=== PATIENT | male | born 1950 | race African-American/Black ===

== ENCOUNTER 2017-04-09 20:10 | Inpatient (IN) | payer MEDICARE ==
[~2017-04-09] VITALS: Ht 185.4 cm; Wt 101.6 kg
[2017-04-09 20:00] VITALS: BP 122/64
[~2017-04-09 20:10] MED LIST: AMLO10TA80 PO; ASCO-339 PO; JANUMET PO; TICA60TA PO
[2017-04-09] MEDS ORDERED: ONDANSETRON HCL 4MG/2ML VIAL IV PRN (21:15)
[2017-04-09] MEDS ORDERED: ZOLPIDEM TARTRATE 5MG TABLET PO PRN (21:15)
[2017-04-09] MEDS ORDERED: HYDROMORPHONE HCL/PF 2MG/ML CPJ IV PRN (21:15)
[2017-04-09 22:00] VITALS: BP 122/64
[2017-04-09] MEDS: ATORVASTATIN CALCIUM 10MG TABLET PO SCH (22:03)
[2017-04-09] MEDS: ENOXAPARIN 100MG/ML SYR SUBCUT SCH (22:33)
[2017-04-09] MEDS: TICAGRELOR 60 MG TABLET PO SCH (23:29)
[2017-04-10] MEDS: ACETAMINOPHEN WITH CODEINE 300/30MG TABLET PO PRN ×3 (02:08→20:55)
[2017-04-10 08:00] VITALS: BP 112/57
[2017-04-10 08:01] LABS: BASOPHILS % 0.3 % (0.0-2.0); EOSINOPHILS % 1.2 % (0.0-5.0); HEMATOCRIT. 29.2 % (42.0-52.0); HEMOGLOBIN. 9.7 g/dL (14.0-18.0); LYMPHOCYTES % 17.5 % (20.0-50.0); MEAN CORPUSCULAR HEMOGLOBIN 29.6 pg (28.0-32.0); MEAN CORPUSCULAR VOLUME 89.3 fL (80.0-94.0); MEAN PLATELET VOLUME 7.7 fl (7.4-10.4); MONOCYTES % 8.7 % (2.0-8.0); NEUTROPHILS % 72.3 % (40.0-76.0); PLATELET 329 x1000/uL (130-400); RED BLOOD CELL COUNT 3.27 mill/uL (4.7-6.1)
[2017-04-10 08:42] LABS: CARBON DIOXIDE 24 mEq/L (21-32); CHLORIDE 106 mEq/L (98-107); HAPTOGLOBIN 320 mg/dL (30-200); PREALBUMIN 14.5 mg/dL (20.0-40.0)
[2017-04-10] MEDS: AMLODIPINE 10MG TABLET PO SCH (09:00)
[2017-04-10] MEDS: ENOXAPARIN 100MG/ML SYR SUBCUT SCH ×2 (09:22→20:57)
[2017-04-10] MEDS: DOCUSATE SODIUM 250MG CAPSULE PO SCH (09:22)
[2017-04-10] MEDS: ASPIRIN 81MG TABLET PO SCH (09:22)
[2017-04-10] MEDS: LINAGLIPTIN 5MG TABLET PO SCH (09:23)
[2017-04-10] MEDS: METFORMIN HCL 500MG TABLET PO SCH ×2 (09:23→16:59)
[2017-04-10] MEDS: TICAGRELOR 60 MG TABLET PO SCH ×2 (09:25→20:54)
[2017-04-10 12:10] VITALS: BP 122/86
[2017-04-10] MEDS ORDERED: POTASSIUM BICARB/CIT ACID 25 MEQ TABLET.EFF PO ONE (16:00)
[2017-04-10] MEDS ORDERED: DEXTROSE 50% WATER 50ML SYRINGE IV PRN (16:00)
[2017-04-10] MEDS ORDERED: POTASSIUM CHLORIDE 20MEQ TABLET SR PO NR (16:15)
[2017-04-10] MEDS: INSULIN LISPRO 100 UNITS/ML SUBCUT SCH ×2 (17:00→20:57)
[2017-04-10] MEDS: BLOOD SUGAR DIAGNOSTIC STRIP TEST SCH ×2 (17:21→20:58)
[2017-04-10 20:00] VITALS: BP 115/62
[2017-04-10] MEDS: ATORVASTATIN CALCIUM 10MG TABLET PO SCH (20:55)
[2017-04-11] MEDS: BLOOD SUGAR DIAGNOSTIC STRIP TEST SCH ×4 (06:47→21:14)
[2017-04-11] MEDS: INSULIN LISPRO 100 UNITS/ML SUBCUT SCH ×4 (06:47→21:00)
[2017-04-11 07:07] LABS: BASOPHILS % 0.2 % (0.0-2.0); EOSINOPHILS % 1.5 % (0.0-5.0); HEMATOCRIT. 28.6 % (42.0-52.0); HEMOGLOBIN. 9.6 g/dL (14.0-18.0); LYMPHOCYTES % 17.1 % (20.0-50.0); MEAN CORPUSCULAR HEMOGLOBIN 29.9 pg (28.0-32.0); MEAN CORPUSCULAR VOLUME 88.9 fL (80.0-94.0); MEAN PLATELET VOLUME 7.3 fl (7.4-10.4); MONOCYTES % 9.3 % (2.0-8.0); NEUTROPHILS % 71.9 % (40.0-76.0); PLATELET 375 x1000/uL (130-400); RED BLOOD CELL COUNT 3.21 mill/uL (4.7-6.1); RED CELL DISTRIBUTION WIDTH 14.1 % (11.6-14.6)
[2017-04-11 07:55] LABS: CARBON DIOXIDE 21 mEq/L (21-32); CHLORIDE 110 mEq/L (98-107)
[2017-04-11 08:00] VITALS: BP 106/56
[2017-04-11] MEDS: AMLODIPINE 10MG TABLET PO SCH (09:00)
[2017-04-11] MEDS: ENOXAPARIN 100MG/ML SYR SUBCUT SCH ×2 (09:20→21:47)
[2017-04-11] MEDS: DOCUSATE SODIUM 250MG CAPSULE PO SCH (09:21)
[2017-04-11] MEDS: ASPIRIN 81MG TABLET PO SCH (09:21)
[2017-04-11] MEDS: LINAGLIPTIN 5MG TABLET PO SCH (09:21)
[2017-04-11] MEDS: METFORMIN HCL 500MG TABLET PO SCH ×2 (09:21→17:55)
[2017-04-11] MEDS: TICAGRELOR 60 MG TABLET PO SCH ×2 (09:23→21:39)
[2017-04-11] MEDS: MAGNESIUM OXIDE 400MG TABLET PO SCH ×2 (12:08→21:44)
[2017-04-11 16:45] VITALS: BP 140/79
[2017-04-11] MEDS: ACETAMINOPHEN WITH CODEINE 300/30MG TABLET PO PRN (16:49)
[2017-04-11 20:00] VITALS: BP 123/82
[2017-04-11] MEDS: ATORVASTATIN CALCIUM 10MG TABLET PO SCH (21:41)
[2017-04-11] MEDS: ACETAMINOPHEN 325MG TABLET PO PRN (21:44)
[2017-04-12] MEDS: ACETAMINOPHEN 325MG TABLET PO PRN (05:41)
[2017-04-12] MEDS: BLOOD SUGAR DIAGNOSTIC STRIP TEST SCH ×4 (06:49→21:36)
[2017-04-12 08:01] VITALS: BP 125/77
[2017-04-12] MEDS: DOCUSATE SODIUM 250MG CAPSULE PO SCH (08:33)
[2017-04-12] MEDS: AMLODIPINE 10MG TABLET PO SCH (08:34)
[2017-04-12] MEDS: MAGNESIUM OXIDE 400MG TABLET PO SCH ×2 (08:34→21:32)
[2017-04-12] MEDS: LINAGLIPTIN 5MG TABLET PO SCH (08:34)
[2017-04-12] MEDS: ENOXAPARIN 100MG/ML SYR SUBCUT SCH ×2 (08:34→21:34)
[2017-04-12] MEDS: ASPIRIN 81MG TABLET PO SCH (08:34)
[2017-04-12] MEDS: INSULIN LISPRO 100 UNITS/ML SUBCUT SCH ×4 (08:37→21:00)
[2017-04-12] MEDS: TICAGRELOR 60 MG TABLET PO SCH ×2 (08:39→21:31)
[2017-04-12] MEDS: METFORMIN HCL 500MG TABLET PO SCH ×2 (08:39→18:19)
[2017-04-12 13:50] LABS: BASOPHILS % 0.9 % (0.0-2.0); EOSINOPHILS % 1.4 % (0.0-5.0); HEMATOCRIT. 32.8 % (42.0-52.0); LYMPHOCYTES % 14.4 % (20.0-50.0); MEAN CORPUSCULAR HEMOGLOBIN 30.1 pg (28.0-32.0); MEAN CORPUSCULAR VOLUME 89.6 fL (80.0-94.0); MEAN PLATELET VOLUME 7.6 fl (7.4-10.4); MONOCYTES % 7.7 % (2.0-8.0); NEUTROPHILS % 75.6 % (40.0-76.0); PLATELET 475 x1000/uL (130-400); RED BLOOD CELL COUNT 3.66 mill/uL (4.7-6.1); RED CELL DISTRIBUTION WIDTH 14.5 % (11.6-14.6)
[2017-04-12 14:27] LABS: CARBON DIOXIDE 24 mEq/L (21-32); CHLORIDE 106 mEq/L (98-107); HDL CHOLESTEROL 25 mg/dL (40-59); LDL CHOLESTEROL 75 mg/dL (5-100); PHOSPHORUS 2.8 mg/dL (2.5-4.9); TOTAL IRON BINDING CAPACITY 310 ug/dL (250-450)
[2017-04-12 14:41] LABS: FOLIC ACID (FOLATE) SERUM 13.8 ng/mL (>5.38)
[2017-04-12 15:03] LABS: PROSTRATE SPECIFIC AG TOTAL 15.86 ng/mL (0.0-4.0)
[2017-04-12] MEDS: ACETAMINOPHEN WITH CODEINE 300/30MG TABLET PO PRN ×2 (15:55→21:34)
[2017-04-12 20:11] VITALS: BP 137/86
[2017-04-12] MEDS: ATORVASTATIN CALCIUM 10MG TABLET PO SCH (21:31)
[2017-04-13] MEDS: ACETAMINOPHEN WITH CODEINE 300/30MG TABLET PO PRN ×4 (05:52→21:37)
[2017-04-13] MEDS: BLOOD SUGAR DIAGNOSTIC STRIP TEST SCH ×4 (06:30→21:32)
[2017-04-13 07:12] LABS: BASOPHILS % 0.5 % (0.0-2.0); EOSINOPHILS % 1.7 % (0.0-5.0); HEMATOCRIT. 29.1 % (42.0-52.0); HEMOGLOBIN. 9.7 g/dL (14.0-18.0); LYMPHOCYTES % 17.1 % (20.0-50.0); MEAN CORPUSCULAR HEMOGLOBIN 29.8 pg (28.0-32.0); MEAN CORPUSCULAR VOLUME 89.4 fL (80.0-94.0); MEAN PLATELET VOLUME 7.3 fl (7.4-10.4); NEUTROPHILS % 72.7 % (40.0-76.0); PLATELET 458 x1000/uL (130-400); RED BLOOD CELL COUNT 3.25 mill/uL (4.7-6.1); RED CELL DISTRIBUTION WIDTH 14.2 % (11.6-14.6)
[2017-04-13] MEDS: INSULIN LISPRO 100 UNITS/ML SUBCUT SCH ×4 (07:35→21:00)
[2017-04-13 08:00] VITALS: BP 123/74
[2017-04-13] MEDS: ENOXAPARIN 100MG/ML SYR SUBCUT SCH ×2 (08:38→21:32)
[2017-04-13] MEDS: METFORMIN HCL 500MG TABLET PO SCH ×2 (08:38→17:05)
[2017-04-13] MEDS: DOCUSATE SODIUM 250MG CAPSULE PO SCH (08:38)
[2017-04-13] MEDS: ASPIRIN 81MG TABLET PO SCH (08:39)
[2017-04-13] MEDS: AMLODIPINE 10MG TABLET PO SCH (08:39)
[2017-04-13] MEDS: LINAGLIPTIN 5MG TABLET PO SCH (08:39)
[2017-04-13] MEDS: MAGNESIUM OXIDE 400MG TABLET PO SCH ×2 (08:39→21:32)
[2017-04-13] MEDS: TICAGRELOR 60 MG TABLET PO SCH ×2 (08:39→21:31)
[2017-04-13 20:00] VITALS: BP 133/59
[2017-04-13] MEDS: ATORVASTATIN CALCIUM 10MG TABLET PO SCH (21:32)
[2017-04-14] MEDS: ACETAMINOPHEN WITH CODEINE 300/30MG TABLET PO PRN ×3 (03:01→20:53)
[2017-04-14 07:51] VITALS: BP 138/74
[2017-04-14] MEDS: INSULIN LISPRO 100 UNITS/ML SUBCUT SCH ×4 (09:00→20:54)
[2017-04-14] MEDS: DOCUSATE SODIUM 250MG CAPSULE PO SCH (09:02)
[2017-04-14] MEDS: MAGNESIUM OXIDE 400MG TABLET PO SCH ×2 (09:02→20:51)
[2017-04-14] MEDS: METFORMIN HCL 500MG TABLET PO SCH ×2 (09:02→16:54)
[2017-04-14] MEDS: ENOXAPARIN 100MG/ML SYR SUBCUT SCH ×2 (09:03→20:57)
[2017-04-14] MEDS: AMLODIPINE 10MG TABLET PO SCH (09:03)
[2017-04-14] MEDS: ASPIRIN 81MG TABLET PO SCH (09:03)
[2017-04-14] MEDS: LINAGLIPTIN 5MG TABLET PO SCH (09:03)
[2017-04-14] MEDS: TICAGRELOR 60 MG TABLET PO SCH ×2 (09:04→20:53)
[2017-04-14] MEDS: BLOOD SUGAR DIAGNOSTIC STRIP TEST SCH ×3 (11:56→20:41)
[2017-04-14 20:00] VITALS: BP 124/72
[2017-04-14] MEDS: ATORVASTATIN CALCIUM 10MG TABLET PO SCH (20:51)
[2017-04-15] MEDS: ACETAMINOPHEN 325MG TABLET PO PRN ×2 (00:55→08:38)
[2017-04-15 06:48] LABS: HEMATOCRIT. 29.5 % (42.0-52.0); HEMOGLOBIN. 9.7 g/dL (14.0-18.0); MEAN CORPUSCULAR HEMOGLOBIN 29.6 pg (28.0-32.0); MEAN CORPUSCULAR VOLUME 89.7 fL (80.0-94.0); MEAN PLATELET VOLUME 7.4 fl (7.4-10.4); PLATELET 516 x1000/uL (130-400); RED BLOOD CELL COUNT 3.29 mill/uL (4.7-6.1); RED CELL DISTRIBUTION WIDTH 14.4 % (11.6-14.6)
[2017-04-15 07:17] LABS: CARBON DIOXIDE 21 mEq/L (21-32); CHLORIDE 107 mEq/L (98-107)
[2017-04-15] MEDS: BLOOD SUGAR DIAGNOSTIC STRIP TEST SCH ×4 (07:20→20:42)
[2017-04-15 08:00] VITALS: BP 131/84
[2017-04-15] MEDS: TICAGRELOR 60 MG TABLET PO SCH ×2 (08:20→20:41)
[2017-04-15] MEDS: DOCUSATE SODIUM 250MG CAPSULE PO SCH (08:20)
[2017-04-15] MEDS: METFORMIN HCL 500MG TABLET PO SCH ×2 (08:20→16:36)
[2017-04-15] MEDS: LINAGLIPTIN 5MG TABLET PO SCH (08:21)
[2017-04-15] MEDS: MAGNESIUM OXIDE 400MG TABLET PO SCH ×2 (08:21→20:41)
[2017-04-15] MEDS: AMLODIPINE 10MG TABLET PO SCH (08:21)
[2017-04-15] MEDS: ASPIRIN 81MG TABLET PO SCH (08:21)
[2017-04-15] MEDS: ENOXAPARIN 100MG/ML SYR SUBCUT SCH ×2 (08:23→20:41)
[2017-04-15] MEDS: INSULIN LISPRO 100 UNITS/ML SUBCUT SCH ×4 (08:28→21:48)
[2017-04-15 12:33] LABS: IMMUNOGLOBULIN A 333 mg/dL (61-437); IMMUNOGLOBULIN G 1347 mg/dL (700-1600); IMMUNOGLOBULIN M 379 mg/dL (20-172)
[2017-04-15] MEDS: ACETAMINOPHEN WITH CODEINE 300/30MG TABLET PO PRN ×3 (12:56→21:45)
[2017-04-15 15:56] LABS: PLATELET ESTIMATE INCREASED
[2017-04-15 20:00] VITALS: BP 115/70
[2017-04-15] MEDS ORDERED: ZOLPIDEM TARTRATE 5MG TABLET PO PRN (20:30)
[2017-04-15] MEDS: ATORVASTATIN CALCIUM 10MG TABLET PO SCH (20:41)
[2017-04-16] MEDS: BLOOD SUGAR DIAGNOSTIC STRIP TEST SCH ×4 (06:25→21:17)
[2017-04-16] MEDS: INSULIN LISPRO 100 UNITS/ML SUBCUT SCH ×4 (06:45→21:00)
[2017-04-16] MEDS: ACETAMINOPHEN 325MG TABLET PO PRN ×2 (07:06→17:47)
[2017-04-16 07:39] VITALS: BP 114/58
[2017-04-16 08:27] LABS: CLARITY URINE CLEAR (CLEAR); COLOR URINE YELLOW (YELLOW); GLUCOSE URINE NEGATIVE (NEGATIVE); KETONES URINE NEGATIVE (NEGATIVE); LEUKOCYTE ESTERASE URINE NEGATIVE (NEGATIVE); NITRITE URINE NEGATIVE (NEGATIVE); OCCULT BLOOD URINE NEGATIVE (NEGATIVE); PROTEIN URINE TRACE (NEGATIVE); SPECIFIC GRAVITY URINE 1.016 (1.005-1.030)
[2017-04-16] MEDS: AMLODIPINE 10MG TABLET PO SCH (08:34)
[2017-04-16] MEDS: METFORMIN HCL 500MG TABLET PO SCH ×2 (08:35→17:47)
[2017-04-16] MEDS: ENOXAPARIN 100MG/ML SYR SUBCUT SCH ×2 (08:35→21:17)
[2017-04-16] MEDS: MAGNESIUM OXIDE 400MG TABLET PO SCH ×2 (08:35→21:16)
[2017-04-16] MEDS: DOCUSATE SODIUM 250MG CAPSULE PO SCH (08:35)
[2017-04-16] MEDS: LINAGLIPTIN 5MG TABLET PO SCH (08:35)
[2017-04-16] MEDS: ASPIRIN 81MG TABLET PO SCH (08:35)
[2017-04-16 09:06] LABS: 25-HYDROXY VITAMIN D3 23 ng/mL (.)
[2017-04-16] MEDS: TICAGRELOR 60 MG TABLET PO SCH ×2 (09:06→21:16)
[2017-04-16] MEDS: ACETAMINOPHEN WITH CODEINE 300/30MG TABLET PO PRN ×3 (09:07→19:42)
[2017-04-16 12:12] LABS: EOSINOPHILS % 0.4 % (0.0-5.0); HEMATOCRIT. 30.3 % (42.0-52.0); HEMOGLOBIN. 10.1 g/dL (14.0-18.0); LYMPHOCYTES % 12.1 % (20.0-50.0); MEAN CORPUSCULAR VOLUME 89.7 fL (80.0-94.0); MEAN PLATELET VOLUME 7.2 fl (7.4-10.4); MONOCYTES % 7.1 % (2.0-8.0); NEUTROPHILS % 79.4 % (40.0-76.0); PLATELET 560 x1000/uL (130-400); RED BLOOD CELL COUNT 3.37 mill/uL (4.7-6.1); RED CELL DISTRIBUTION WIDTH 14.5 % (11.6-14.6)
[2017-04-16 19:58] VITALS: BP 111/65
[2017-04-16] MEDS: ATORVASTATIN CALCIUM 10MG TABLET PO SCH (21:16)
[2017-04-17] MEDS: INSULIN LISPRO 100 UNITS/ML SUBCUT SCH ×2 (05:42→12:30)
[2017-04-17] MEDS: BLOOD SUGAR DIAGNOSTIC STRIP TEST SCH ×2 (05:42→12:21)
[2017-04-17] MEDS: ACETAMINOPHEN WITH CODEINE 300/30MG TABLET PO PRN ×2 (05:59→12:27)
[2017-04-17 06:32] LABS: BASOPHILS % 0.6 % (0.0-2.0); EOSINOPHILS % 0.5 % (0.0-5.0); HEMATOCRIT. 28.2 % (42.0-52.0); HEMOGLOBIN. 9.4 g/dL (14.0-18.0); LYMPHOCYTES % 13.7 % (20.0-50.0); MEAN CORPUSCULAR HEMOGLOBIN 29.8 pg (28.0-32.0); MEAN CORPUSCULAR VOLUME 89.3 fL (80.0-94.0); MEAN PLATELET VOLUME 7.3 fl (7.4-10.4); MONOCYTES % 7.7 % (2.0-8.0); NEUTROPHILS % 77.5 % (40.0-76.0); PLATELET 498 x1000/uL (130-400); RED BLOOD CELL COUNT 3.16 mill/uL (4.7-6.1); RED CELL DISTRIBUTION WIDTH 14.7 % (11.6-14.6)
[2017-04-17 07:05] LABS: CHLORIDE 104 mEq/L (98-107)
[2017-04-17 07:10] LABS: CARBON DIOXIDE 19 mEq/L (21-32)
[2017-04-17 08:00] VITALS: BP 122/74
[2017-04-17] MEDS: MAGNESIUM OXIDE 400MG TABLET PO SCH (08:34)
[2017-04-17] MEDS: METFORMIN HCL 500MG TABLET PO SCH (08:34)
[2017-04-17] MEDS: DOCUSATE SODIUM 250MG CAPSULE PO SCH (08:35)
[2017-04-17] MEDS: LINAGLIPTIN 5MG TABLET PO SCH (08:36)
[2017-04-17] MEDS: AMLODIPINE 10MG TABLET PO SCH (08:36)
[2017-04-17] MEDS: ASPIRIN 81MG TABLET PO SCH (08:36)
[2017-04-17] MEDS: TICAGRELOR 60 MG TABLET PO SCH (08:37)
[2017-04-17] MEDS: ENOXAPARIN 100MG/ML SYR SUBCUT SCH (08:38)
[2017-04-17] MEDS ORDERED: LEVOFLOXACIN 500MG TABLET PO NR (13:15)
[2017-04-17] MEDS: ACETAMINOPHEN 325MG TABLET PO PRN (15:01)
[2017-04-17 15:04] VITALS: BP 106/66
== END 2017-04-17 15:30 | disposition home health service (06) | DRG 315 ==
PROVIDERS: ADMIT Physical Medicine & Rehabilitation Spinal Cord Injury Medicine; ATTEND Internal Medicine Geriatric Medicine
DX: T82.868A Thrombosis due to vascular prosthetic devices, implants and grafts, initial encounter (principal); I82.811 Embolism and thrombosis of superficial veins of right lower extremity; E11.42 Type 2 diabetes mellitus with diabetic polyneuropathy; E11.51 Type 2 diabetes mellitus with diabetic peripheral angiopathy without gangrene; J98.11 Atelectasis; E87.6 Hypokalemia; G98.8 Other disorders of nervous system; R53.81 Other malaise; E11.621 Type 2 diabetes mellitus with foot ulcer; L97.519 Non-pressure chronic ulcer of other part of right foot with unspecified severity; I10 Essential (primary) hypertension; I73.9 Peripheral vascular disease, unspecified; E78.5 Hyperlipidemia, unspecified; I25.10 Atherosclerotic heart disease of native coronary artery without angina pectoris; E66.01 Morbid (severe) obesity due to excess calories; R26.9 Unspecified abnormalities of gait and mobility; D50.9 Iron deficiency anemia, unspecified; F06.31 Mood disorder due to known physiological condition with depressive features; Z95.5 Presence of coronary angioplasty implant and graft; Z87.891 Personal history of nicotine dependence; Z89.411 Acquired absence of right great toe; Z68.29 Body mass index [BMI] 29.0-29.9, adult; Z88.8 Allergy status to other drugs, medicaments and biological substances; Z79.899 Other long term (current) drug therapy; Z79.82 Long term (current) use of aspirin; Y83.2 Surgical operation with anastomosis, bypass or graft as the cause of abnormal reaction of the patient, or of later complication, without mention of misadventure at the time of the procedure; Y92.89 Other specified places as the place of occurrence of the external cause
CPT/HCPCS: 36415; 71010; 71020; 80048; 80053; 80061; 81001; 82306; 82607; 82728; 82746; 82784; 82962; 83010; 83036; 83540; 83550; 83615; 83735; 84100; 84134; 84153; 84443; 84630; 85025; 86334; 87040; 87086; 93970; 97110; 97112; 97116; 97163; 97167; 97530; 97535; J1170; J1650; J1815

== ENCOUNTER 2017-09-15 13:18 | Emergency (ER) | payer MEDICARE ==
[~2017-09-15] VITALS: Ht 185.4 cm; Wt 100.0 kg
[~2017-09-15 13:18] MED LIST changes: -ASCO-339 PO
[2017-09-15] MEDS ORDERED: KETOROLAC 60MG/2ML VIAL IM ONE (15:15)
[2017-09-15 15:18] VITALS: BP 121/69
[2017-09-15 15:25] LABS: CLARITY URINE CLEAR (CLEAR); COLOR URINE YELLOW (YELLOW); KETONES URINE NEGATIVE (NEGATIVE); LEUKOCYTE ESTERASE URINE NEGATIVE (NEGATIVE); NITRITE URINE NEGATIVE (NEGATIVE); OCCULT BLOOD URINE 2+ (NEGATIVE); PH URINE 5.5 (4.5-8.0); PROTEIN URINE 2+ (NEGATIVE); SPECIFIC GRAVITY URINE 1.016 (1.005-1.030); UROBILINOGEN URINE 0.2 E.U./dL (0.2-1.0)
[2017-09-15 15:28] LABS: BASOPHILS % 0.3 % (0.0-2.0); EOSINOPHILS % 0.2 % (0.0-5.0); HEMATOCRIT. 36.5 % (42.0-52.0); HEMOGLOBIN. 11.8 g/dL (14.0-18.0); LYMPHOCYTES % 12.6 % (20.0-50.0); MEAN CORPUSCULAR HEMOGLOBIN 29.8 pg (28.0-32.0); MEAN PLATELET VOLUME 7.7 fl (7.4-10.4); MONOCYTES % 7.7 % (2.0-8.0); NEUTROPHILS % 79.2 % (40.0-76.0); PLATELET 447 x1000/uL (130-400); RED BLOOD CELL COUNT 3.97 mill/uL (4.7-6.1); RED CELL DISTRIBUTION WIDTH 13.9 % (11.6-14.6)
[2017-09-15 15:32] LABS: CHLORIDE 109 mEq/L (98-107)
== END 2017-09-15 18:01 | disposition home or self-care (01) ==
LOC: ER 14:01
DX: N20.0 Calculus of kidney (principal); M54.5 Low back pain; R11.2 Nausea with vomiting, unspecified; E11.9 Type 2 diabetes mellitus without complications; I10 Essential (primary) hypertension; I25.2 Old myocardial infarction; Z87.440 Personal history of urinary (tract) infections; Z88.8 Allergy status to other drugs, medicaments and biological substances; Z86.73 Personal history of transient ischemic attack (TIA), and cerebral infarction without residual deficits
CPT/HCPCS: 36415; 74176; 80053; 81001; 83690; 85025; 96372; 99285; J1885

== ENCOUNTER 2019-08-25 12:38 | Inpatient (IN) | payer MEDICARE, MEDICAID ==
[~2019-08-25] VITALS: Ht 185.4 cm; Wt 105.2 kg
[2019-08-25] MEDS ORDERED: ONDANSETRON HCL 4MG/2ML INJ IV STA ×2 (15:27→18:11)
[2019-08-25] MEDS ORDERED: SODIUM CHLORIDE 0.9% 1,000 ML IV ONE (15:27)
[2019-08-25] MEDS ORDERED: MORPHINE SULFATE 4 MG/ML CPJ (NOT FOR IM USE) IV STA ×2 (15:27→18:11)
[2019-08-25 16:06] LABS: BASOPHILS % 0.7 % (0.0-2.0); EOSINOPHILS % 0.1 % (0.0-5.0); HEMATOCRIT. 37.6 % (42.0-52.0); HEMOGLOBIN. 12.2 g/dL (14.0-18.0); LYMPHOCYTES % 7.5 % (20.0-50.0); MEAN CORPUSCULAR VOLUME 89.5 fL (80.0-94.0); MEAN PLATELET VOLUME 8.3 fl (7.4-10.4); MONOCYTES % 7.8 % (2.0-8.0); NEUTROPHILS % 83.9 % (40.0-76.0); PLATELET 421 x1000/uL (130-400); RED CELL DISTRIBUTION WIDTH 15.8 % (11.6-14.6)
[2019-08-25] MEDS ORDERED: HYDRALAZINE 20MG/ML VIAL IV ONE ×2 (16:15→17:45)
[2019-08-25 16:29] LABS: CHLORIDE 109 mEq/L (98-107)
[2019-08-25 16:45] LABS: CLARITY URINE CLEAR (CLEAR); COLOR URINE YELLOW (YELLOW); KETONES URINE NEGATIVE (NEGATIVE); LEUKOCYTE ESTERASE URINE NEGATIVE (NEGATIVE); NITRITE URINE NEGATIVE (NEGATIVE); OCCULT BLOOD URINE 2+ (NEGATIVE); PH URINE 5.5 (4.5-8.0); PROTEIN URINE 2+ (NEGATIVE); SPECIFIC GRAVITY URINE 1.019 (1.005-1.030)
[2019-08-25] MEDS ORDERED: PIPERACILLIN/TAZ 3.375G PREMIX 50 ML IV ONE (17:45)
[2019-08-25] MEDS ORDERED: HYDRALAZINE 20MG/ML VIAL IV PRN (20:45)
[2019-08-25] MEDS ORDERED: PIPERACILLIN/TAZ 3.375G PREMIX 50 ML IV SCH (20:45)
[2019-08-25] MEDS ORDERED: DIPHENHYDRAMINE 50MG/ML VIAL IV PRN (20:45)
[2019-08-25] MEDS ORDERED: DEXTROSE 50% WATER 50ML SYRINGE IV PRN (20:45)
[2019-08-25] MEDS ORDERED: ONDANSETRON HCL 4MG/2ML INJ IV PRN (20:45)
[2019-08-25] MEDS ORDERED: LORAZEPAM 2MG/ML CPJ IV PRN (20:45)
[2019-08-25] MEDS ORDERED: FAMOTIDINE 20MG/2ML VIAL IV SCH (22:30)
[2019-08-26] VITALS (7 sets, daily range): BP systolic 121–173; BP diastolic 55–96
[2019-08-26] MEDS: CLONIDINE 0.1MG TABLET PO PRN ×2 (01:21→21:23)
[2019-08-26] MEDS: HYDROMORPHONE HCL/PF 2MG/ML CPJ IV PRN (01:23)
[2019-08-26] MEDS: PIPERACILLIN/TAZOBACTAM 3.375 G in DEXT 5% WATER 100 ML IV SCH ×3 (05:03→21:03)
[2019-08-26] MEDS: SODIUM CHLORIDE 0.9% 1,000 ML IV SCH ×2 (05:03→12:48)
[2019-08-26] MEDS: BLOOD SUGAR DIAGNOSTIC STRIP TEST SCH ×4 (06:25→21:02)
[2019-08-26] MEDS: INSULIN LISPRO 100 UNITS/ML SUBCUT SCH ×4 (06:25→21:00)
[2019-08-26] MEDS ORDERED: PNEUMOCOCCAL 23-VAL P-SAC VAC 0.5 ML IM ONE (08:00)
[2019-08-26 08:24] LABS: BASOPHILS % 0.6 % (0.0-2.0); EOSINOPHILS % 0.4 % (0.0-5.0); HEMATOCRIT. 32.9 % (42.0-52.0); HEMOGLOBIN. 10.7 g/dL (14.0-18.0); LYMPHOCYTES % 10.9 % (20.0-50.0); MEAN CORPUSCULAR HEMOGLOBIN 29.1 pg (28.0-32.0); MEAN PLATELET VOLUME 8.1 fl (7.4-10.4); MONOCYTES % 8.4 % (2.0-8.0); NEUTROPHILS % 79.7 % (40.0-76.0); PLATELET 388 x1000/uL (130-400); RED BLOOD CELL COUNT 3.69 mill/uL (4.7-6.1); RED CELL DISTRIBUTION WIDTH 15.9 % (11.6-14.6)
[2019-08-26 08:27] LABS: CHLORIDE 110 mEq/L (98-107)
[2019-08-26] MEDS: FAMOTIDINE 20MG/2ML VIAL IV SCH ×2 (09:27→20:48)
[2019-08-26] MEDS: ENOXAPARIN 40MG/0.4ML SYR SUBCUT SCH (09:27)
[2019-08-26] MEDS ORDERED: INFLUENZA VIRUS VACCINE(AFLURIA) 0.5ML SYR IM ONE (10:00)
[2019-08-26] MEDS ORDERED: MAGNESIUM 2 G PREMIX 50 ML IV NR (14:30)
[2019-08-26] MEDS: ACETAMINOPHEN 325MG TABLET PO PRN (21:23)
[2019-08-27] VITALS: BP 116/69
[2019-08-27 04:00] VITALS: BP 136/80
[2019-08-27] MEDS: SODIUM CHLORIDE 0.9% 1,000 ML IV SCH ×3 (04:43→18:07)
[2019-08-27] MEDS: HYDROMORPHONE HCL/PF 2MG/ML CPJ IV PRN (05:48)
[2019-08-27] MEDS: PIPERACILLIN/TAZOBACTAM 3.375 G in DEXT 5% WATER 100 ML IV SCH ×3 (05:53→21:23)
[2019-08-27] MEDS: BLOOD SUGAR DIAGNOSTIC STRIP TEST SCH ×4 (06:07→21:18)
[2019-08-27] MEDS: INSULIN LISPRO 100 UNITS/ML SUBCUT SCH ×4 (06:08→21:00)
[2019-08-27 07:06] LABS: CHLORIDE 110 mEq/L (98-107)
[2019-08-27 07:16] LABS: AMYLASE 178 IU/L (25-115)
[2019-08-27 07:49] LABS: BASOPHILS % 0.6 % (0.0-2.0); EOSINOPHILS % 1.6 % (0.0-5.0); HEMATOCRIT. 31.1 % (42.0-52.0); HEMOGLOBIN. 10.3 g/dL (14.0-18.0); LYMPHOCYTES % 7.6 % (20.0-50.0); MEAN CORPUSCULAR HEMOGLOBIN 29.1 pg (28.0-32.0); MEAN CORPUSCULAR VOLUME 87.9 fL (80.0-94.0); MEAN PLATELET VOLUME 8.3 fl (7.4-10.4); MONOCYTES % 4.7 % (2.0-8.0); NEUTROPHILS % 85.5 % (40.0-76.0); PLATELET 325 x1000/uL (130-400); RED BLOOD CELL COUNT 3.54 mill/uL (4.7-6.1); RED CELL DISTRIBUTION WIDTH 15.8 % (11.6-14.6)
[2019-08-27 08:00] VITALS: BP 144/77
[2019-08-27 08:20] LABS: HEPATITIS B SURFACE ANTIGEN NEGATIVE
[2019-08-27] MEDS: FAMOTIDINE 20MG/2ML VIAL IV SCH ×2 (08:40→21:18)
[2019-08-27] MEDS: ENOXAPARIN 40MG/0.4ML SYR SUBCUT SCH (08:41)
[2019-08-27 08:49] LABS: HEPATITIS A AB IGM NEGATIVE (NEGATIVE)
[2019-08-27 20:00] VITALS: BP 138/72
[2019-08-28] VITALS: BP 124/64
[2019-08-28 04:00] VITALS: BP 140/76
[2019-08-28] MEDS: SODIUM CHLORIDE 0.9% 1,000 ML IV SCH ×3 (05:31→23:24)
[2019-08-28] MEDS: PIPERACILLIN/TAZOBACTAM 3.375 G in DEXT 5% WATER 100 ML IV SCH ×3 (05:31→21:06)
[2019-08-28] MEDS: BLOOD SUGAR DIAGNOSTIC STRIP TEST SCH ×4 (05:52→21:03)
[2019-08-28] MEDS: INSULIN LISPRO 100 UNITS/ML SUBCUT SCH ×4 (06:32→21:11)
[2019-08-28 08:00] VITALS: BP 150/75
[2019-08-28] MEDS: ENOXAPARIN 40MG/0.4ML SYR SUBCUT SCH (08:38)
[2019-08-28] MEDS: FAMOTIDINE 20MG/2ML VIAL IV SCH ×2 (08:38→21:06)
[2019-08-28 12:00] VITALS: BP 151/76
[2019-08-28 16:00] VITALS: BP 130/69
[2019-08-28 20:00] VITALS: BP 141/60
[2019-08-29] MEDS: PIPERACILLIN/TAZOBACTAM 3.375 G in DEXT 5% WATER 100 ML IV SCH ×2 (05:04→14:41)
[2019-08-29] MEDS: BLOOD SUGAR DIAGNOSTIC STRIP TEST SCH ×3 (05:23→17:20)
[2019-08-29] MEDS: INSULIN LISPRO 100 UNITS/ML SUBCUT SCH ×3 (06:07→17:15)
[2019-08-29 08:00] VITALS: BP 179/100
[2019-08-29] MEDS: ENOXAPARIN 40MG/0.4ML SYR SUBCUT SCH (08:00)
[2019-08-29] MEDS: ACETAMINOPHEN 325MG TABLET PO PRN (08:01)
[2019-08-29] MEDS: FAMOTIDINE 20MG/2ML VIAL IV SCH (08:01)
[2019-08-29] MEDS: CLONIDINE 0.1MG TABLET PO PRN (08:01)
[2019-08-29] MEDS ORDERED: MAGNESIUM 2 G PREMIX 50 ML IV ONE (11:00)
[2019-08-29] MEDS: SODIUM CHLORIDE 0.9% 1,000 ML IV SCH (11:00)
[2019-08-29 12:00] VITALS: BP 127/70
[2019-08-29 15:14] VITALS: BP 127/70
[2019-08-29 16:00] VITALS: BP 143/64
== END 2019-08-29 18:15 | disposition home or self-care (01) | DRG 444 ==
LOC: ER 12:38 → 5WST 17:58 → EDBEDREQ 18:03 → ENRESERV 23:32
PROVIDERS: ADMIT Internal Medicine; ATTEND Internal Medicine
DX: K80.62 Calculus of gallbladder and bile duct with acute cholecystitis without obstruction (principal); K85.10 Biliary acute pancreatitis without necrosis or infection; E88.09 Other disorders of plasma-protein metabolism, not elsewhere classified; E11.51 Type 2 diabetes mellitus with diabetic peripheral angiopathy without gangrene; I10 Essential (primary) hypertension; I25.10 Atherosclerotic heart disease of native coronary artery without angina pectoris; N40.0 Benign prostatic hyperplasia without lower urinary tract symptoms; R74.0 Nonspecific elevation of levels of transaminase and lactic acid dehydrogenase [LDH]; I25.2 Old myocardial infarction; Z86.73 Personal history of transient ischemic attack (TIA), and cerebral infarction without residual deficits; Z88.8 Allergy status to other drugs, medicaments and biological substances; Z79.899 Other long term (current) drug therapy; Z82.49 Family history of ischemic heart disease and other diseases of the circulatory system; Z83.3 Family history of diabetes mellitus; Z79.82 Long term (current) use of aspirin; Z89.421 Acquired absence of other right toe(s)
CPT/HCPCS: 36415; 71045; 74176; 74181; 76705; 80053; 80076; 81003; 82150; 82248; 82962; 83735; 84484; 85025; 86705; 86709; 86803; 87340; 90686; 90732; 93005; 93970; 99285; J0360; J1170; J1650; J1815; J2270; J2405; J2543; J3475; J3490; J7030; J7060

== ENCOUNTER 2024-06-05 11:35 | Inpatient (IN) | payer MEDICARE, OTHER ==
[~2024-06-05] VITALS: Ht 185.4 cm; Wt 94.4 kg
[2024-06-05 11:43] VITALS: O2SAT 98
[2024-06-05 12:11] LABS: BASOPHILS % 0.3 % (0.0-2.0); EOSINOPHILS % 0.3 % (0.0-5.0); HEMATOCRIT. 24.3 % (42.0-52.0); HEMOGLOBIN. 7.9 g/dL (14.0-18.0); LYMPHOCYTES % 10.5 % (20.0-50.0); MEAN CORPUSCULAR HEMOGLOBIN 30.3 pg (28.0-32.0); MEAN CORPUSCULAR HGB CONC 32.6 g/dL (31.0-37.0); MEAN CORPUSCULAR VOLUME 92.9 fL (80.0-94.0); MEAN PLATELET VOLUME 7.6 fl (7.4-10.4); MONOCYTES % 5.4 % (2.0-8.0); NEUTROPHILS % 83.5 % (40.0-76.0); PLATELET 449 x1000/uL (130-400); RED BLOOD CELL COUNT 2.61 mill/uL (4.7-6.1); RED CELL DISTRIBUTION WIDTH 14.5 % (11.6-14.6); WHITE BLOOD COUNT 7.8 x1000/uL (4.5-11.0)
[2024-06-05 12:23] LABS: CHLORIDE 112 mEq/L (98-107); POTASSIUM 4.7 mEq/L (3.5-5.1); SODIUM 141 mEq/L (136-145)
[2024-06-05 12:24] LABS: CARBON DIOXIDE 20 mEq/L (21-32)
[2024-06-05 12:25] LABS: CALCIUM 8.4 mg/dL (8.7-10.4)
[2024-06-05 12:29] LABS: CREATININE 4.4 mg/dL (0.6-1.3); GLUCOSE 114 mg/dL (70-105); UREA NITROGEN BLOOD 40 mg/dL (9-23)
[2024-06-05 12:33] LABS: TROPONIN I HIGH SENSITIVITY 60 ng/L (3.0-53)
[2024-06-05] MEDS: FUROSEMIDE 40MG/4ML VIAL IV ONE (13:44)
[2024-06-05] MEDS: ASPIRIN 81MG TABLET PO ONE (13:44)
[2024-06-05] MEDS: AMLODIPINE 5MG TABLET PO ONE ×2 (15:29→19:12)
[2024-06-05] MEDS ORDERED: MAGNESIUM/ALUMINUM HYDROXIDE/SIMETHICONE 30ML UDC PO PRN (16:00)
[2024-06-05] MEDS ORDERED: IPRATROPIUM/ALBUTEROL 0.5-3(2.5)MG/3ML NEB NEB PRN (16:00)
[2024-06-05] MEDS ORDERED: NITROGLYCERIN 0.4MG TABLET SL SL PRN (16:00)
[2024-06-05] MEDS ORDERED: ONDANSETRON HCL 4MG/2ML INJ IV PRN (16:00)
[2024-06-05] MEDS ORDERED: ACETAMINOPHEN 325MG TABLET PO PRN ×2 (16:00)
[2024-06-05] MEDS ORDERED: GUAIFENESIN 200MG/10ML SUGAR FREE UDC PO PRN (16:00)
[2024-06-05] MEDS ORDERED: DEXTROSE 50% WATER 50ML SYRINGE IV PRN (16:15)
[2024-06-05 17:29] LABS: BG BASE EXCESS -7.6 mmol/L (-2.0-3.0); BG CARBOXYHEMOGLOBIN 0.5 % (0.5-1.5); BG DEOXYHEMOGLOBIN 2.4 % (0.0-5.0); BG FRACTION INSPIRED OXYGEN 28; BG HCO3 ACT 16.1 mmol/L (21.0-28.0); BG METHEMOGLOBIN 0.2 % (0.5-1.5); BG OXYGEN SATURATION 97.6 % (94.0-98.0); BG OXYHEMOGLOBIN 96.9 % (94.0-98.0); BG PCO2 26.2 mmHg (35.0-48.0); BG PH 7.406 (7.350-7.450); BG PO2 100.3 mmHg (83.0-108.0); BG SAMPLE SITE LEFT RADIAL; BG TOTAL HEMOGLOBIN 8.1 g/dL (13.5-17.5); BG VENT MODE NASAL CANNULA
[2024-06-05] MEDS: METOLAZONE 10MG TABLET PO NR (17:34)
[2024-06-05] MEDS: BLOOD SUGAR DIAGNOSTIC STRIP TEST SCH (17:39)
[2024-06-05] MEDS: INSULIN LISPRO 100 UNITS/ML SUBCUT SCH (18:20)
[2024-06-05] MEDS: ENOXAPARIN 30MG/0.3ML SYR SUBCUT SCH (18:22)
[2024-06-05] MEDS: CLONIDINE 0.1MG TABLET PO PRN (18:22)
[2024-06-05 18:31] LABS: IRON 51 ug/dL (65-175)
[2024-06-05 18:32] LABS: LDL CHOLESTEROL 129 mg/dL (5-100); TRIGLYCERIDE 91 mg/dL (0-150)
[2024-06-05 18:33] LABS: FOLIC ACID (FOLATE) SERUM 15.54 ng/mL (>5.38); HDL CHOLESTEROL 36 mg/dL (>55); VITAMIN B12 SERUM 689 pg/mL (211-911)
[2024-06-05 18:34] LABS: CHOLESTEROL 177 mg/dL (<200); TOTAL IRON BINDING CAPACITY 519 ug/dl (250-425)
[2024-06-05 18:36] LABS: T4 FREE 1.32 ng/dL (0.89-1.76); THYROID STIMULATING HORMONE 2.88 uIU/mL (0.55-4.78)
[2024-06-05 20:10] VITALS: BP 165/96; PULSE 104; RESP 19; TEMP 36.7516
[2024-06-05] MEDS ORDERED: ZOLPIDEM TARTRATE 5MG TABLET PO PRN (21:00)
[2024-06-05] MEDS: FAMOTIDINE 20MG TABLET PO SCH (21:33)
[2024-06-05] MEDS: FUROSEMIDE 40MG/4ML VIAL IVP SCH (21:33)
[2024-06-05] MEDS ORDERED: FERR325T30 PO (22:05)
[2024-06-05] MEDS ORDERED: ASPI-1406 PO (22:05)
[2024-06-05] MEDS ORDERED: ASCO500T20 PO (22:05)
[2024-06-05] MEDS ORDERED: CHOL2000 PO (22:05)
[2024-06-05] MEDS ORDERED: CARV6.2548 PO (22:05)
[2024-06-05] MEDS ORDERED: DAPA10TA PO (22:05)
[2024-06-05] MEDS ORDERED: SPIR25TA6 PO (22:05)
[2024-06-05] MEDS ORDERED: LOSA100T33 PO (22:06)
[2024-06-05] MEDS ORDERED: SITA1TBM4 PO (22:06)
[2024-06-05] MEDS ORDERED: PIOG30TA70 PO (22:06)
[2024-06-05] MEDS: TAMSULOSIN HCL 0.4MG SR CAPSULE PO SCH (22:10)
[2024-06-06 01:13] LABS: CREATINE KINASE MB FRACTION 1.2 ng/mL (0.5-3.6)
[2024-06-06 07:10] LABS: CARBON DIOXIDE 17 mEq/L (21-32); CHLORIDE 111 mEq/L (98-107); POTASSIUM 4.9 mEq/L (3.5-5.1); SODIUM 140 mEq/L (136-145)
[2024-06-06 07:11] LABS: CALCIUM 8.4 mg/dL (8.7-10.4)
[2024-06-06 07:14] LABS: CREATINE KINASE MB FRACTION 1.2 ng/mL (0.5-3.6)
[2024-06-06 07:15] LABS: CREATININE 4.4 mg/dL (0.6-1.3)
[2024-06-06 07:16] LABS: GLUCOSE 135 mg/dL (70-105)
[2024-06-06 07:17] LABS: ALBUMIN 3.6 g/dL (3.2-4.8); UREA NITROGEN BLOOD 41 mg/dL (9-23)
[2024-06-06 07:18] LABS: ALANINE AMINOTRANSFERASE 13 IU/L (10-49); ASPARTATE AMINOTRANSFERASE 21 IU/L (<34); BILIRUBIN TOTAL 0.5 mg/dL (0.1-1.0); CREATINE KINASE 124 IU/L (46-171); PROTEIN TOTAL 7.5 g/dL (6.0-8.3)
[2024-06-06 07:25] LABS: BASOPHILS % 0.4 % (0.0-2.0); EOSINOPHILS % 0.6 % (0.0-5.0); HEMATOCRIT. 23.4 % (42.0-52.0); HEMOGLOBIN. 7.5 g/dL (14.0-18.0); MEAN CORPUSCULAR HEMOGLOBIN 30.1 pg (28.0-32.0); MEAN PLATELET VOLUME 8.8 fl (7.4-10.4); MONOCYTES % 4.2 % (2.0-8.0); NEUTROPHILS % 81.8 % (40.0-76.0); PLATELET 390 x1000/uL (130-400); RED BLOOD CELL COUNT 2.49 mill/uL (4.7-6.1); RED CELL DISTRIBUTION WIDTH 14.8 % (11.6-14.6); WHITE BLOOD COUNT 9.1 x1000/uL (4.5-11.0)
[2024-06-06 07:49] LABS: TROPONIN I HIGH SENSITIVITY 55 ng/L (3.0-53)
[2024-06-06 08:00] VITALS: BP 148/89; PULSE 98; RESP 18; TEMP 36.114; O2SAT 100
[2024-06-06] MEDS: ASPIRIN 81MG EC TABLET PO SCH (10:04)
[2024-06-06] MEDS: DUTASTERIDE 0.5MG CAPSULE PO SCH (10:04)
[2024-06-06 12:00] VITALS: BP 141/82; PULSE 101; RESP 18; TEMP 37.16964; O2SAT 100
[2024-06-06] MEDS ORDERED: IPRATROPIUM/ALBUTEROL 0.5-3(2.5)MG/3ML NEB HHN SCH (12:00)
[2024-06-06 16:00] VITALS: BP 159/89; PULSE 99; RESP 16; RESP 18; TEMP 36.28068; O2SAT 95
[2024-06-06 20:00] VITALS: BP 160/92; PULSE 100; RESP 18; TEMP 36.44736; O2SAT 98
[2024-06-06] MEDS: DOCUSATE SODIUM 100MG CAPSULE PO PRN (21:32)
[2024-06-07] VITALS: BP 153/75; PULSE 105; RESP 17; TEMP 36.6696; O2SAT 98
[2024-06-07 04:00] VITALS: BP 148/90; PULSE 96; RESP 18; TEMP 36.50292; O2SAT 99
[2024-06-07 08:00] VITALS: BP 148/82; PULSE 96; RESP 19; TEMP 36.33624; O2SAT 99
[2024-06-07 12:00] VITALS: BP 153/81; PULSE 95; RESP 20; TEMP 36.33624; O2SAT 97
[2024-06-07 12:29] LABS: POTASSIUM 4.5 mEq/L (3.5-5.1)
[2024-06-07 12:31] LABS: CALCIUM 8.3 mg/dL (8.7-10.4)
[2024-06-07 12:35] LABS: CREATININE 4.3 mg/dL (0.6-1.3)
[2024-06-07 12:59] LABS: HEMATOCRIT 27.3 % (42.0-52.0); HEMOGLOBIN 8.7 g/dL (14.0-18.0); MEAN CORPUSCULAR HEMOGLOBIN 30.2 pg (28.0-32.0); MEAN CORPUSCULAR VOLUME 94.4 fL (80.0-94.0); PLATELET 449 x1000/uL (130-400); RED BLOOD CELL COUNT 2.89 mill/uL (4.7-6.1); RED CELL DISTRIBUTION WIDTH 14.7 % (11.6-14.6)
[2024-06-07 16:00] VITALS: BP 123/66; PULSE 73; RESP 18; TEMP 36.16956; O2SAT 95
[2024-06-07] MEDS: AMLODIPINE 10MG TABLET PO SCH (19:30)
[2024-06-07] MEDS: FERROUS SULFATE 325MG TABLET PO SCH (19:31)
[2024-06-07] MEDS: CARVEDILOL 6.25 MG TABLET PO SCH (20:41)
[2024-06-07] MEDS: ASCORBIC ACID 500 MG TABLET PO SCH (20:41)
[2024-06-07 20:48] VITALS: BP 142/93; PULSE 100; RESP 20; TEMP 35.66952; O2SAT 99
[2024-06-08 00:46] VITALS: BP 119/70; PULSE 95; RESP 20; TEMP 36.28068; O2SAT 100
[2024-06-08 04:00] VITALS: BP 129/80; PULSE 94; RESP 18; TEMP 36.6696; O2SAT 99
[2024-06-08 07:23] LABS: POTASSIUM 4.4 mEq/L (3.5-5.1)
[2024-06-08 07:29] LABS: CREATININE 4.2 mg/dL (0.6-1.3)
[2024-06-08 08:00] VITALS: BP 109/60; PULSE 91; RESP 20; TEMP 36.44736; O2SAT 97
[2024-06-08 08:10] LABS: HEMATOCRIT 25.8 % (42.0-52.0); HEMOGLOBIN 8.3 g/dL (14.0-18.0); MEAN CORPUSCULAR HEMOGLOBIN 29.6 pg (28.0-32.0); MEAN CORPUSCULAR HGB CONC 32.2 g/dL (31.0-37.0); MEAN CORPUSCULAR VOLUME 91.8 fL (80.0-94.0); PLATELET 489 x1000/uL (130-400); RED BLOOD CELL COUNT 2.81 mill/uL (4.7-6.1); RED CELL DISTRIBUTION WIDTH 14.9 % (11.6-14.6); WHITE BLOOD COUNT 6.2 x1000/uL (4.5-11.0)
[2024-06-08] MEDS ORDERED: SPIRONOLACTONE 25MG TABLET PO SCH (09:00)
[2024-06-08] MEDS ORDERED: LOSARTAN 100 MG TABLET PO SCH ×2 (09:00)
[2024-06-08 12:00] VITALS: BP 132/77; PULSE 94; RESP 19; TEMP 36.44736; O2SAT 98
[2024-06-08] MEDS ORDERED: ATOR40TA70 MT (12:41)
[2024-06-08 14:30] LABS: CLARITY URINE CLEAR (CLEAR); COLOR URINE YELLOW (YELLOW); GLUCOSE URINE NEGATIVE (NEGATIVE); KETONES URINE NEGATIVE (NEGATIVE); LEUKOCYTE ESTERASE URINE NEGATIVE (NEGATIVE); NITRITE URINE NEGATIVE (NEGATIVE); OCCULT BLOOD URINE 2+ (NEGATIVE); PH URINE 5.5 (4.5-8.0); PROTEIN URINE 2+ (NEGATIVE); UROBILINOGEN URINE 0.2 E.U./dL (0.2-1.0)
[2024-06-08 15:08] LABS: BACTERIA URINE NONE SEEN; WBC URINE 0-2 /hpf (0-2)
[2024-06-08 15:09] LABS: SQUAMOUS EPITHELIAL CELL URINE RARE /lpf (RARE/1+)
[2024-06-08 15:51] VITALS: BP 135/80; PULSE 92; TEMP 97.5
[2024-06-08 16:00] VITALS: BP 137/75; PULSE 97; RESP 20; TEMP 36.33624; O2SAT 97
== END 2024-06-08 17:10 | disposition home or self-care (01) | DRG 291 ==
LOC: ER 11:35 → 7EST 15:11 → EDBEDREQ 15:26
PROVIDERS: ADMIT Internal Medicine; ATTEND Internal Medicine
DX: I13.0 Hypertensive heart and chronic kidney disease with heart failure and stage 1 through stage 4 chronic kidney disease, or unspecified chronic kidney disease (principal); I50.43 Acute on chronic combined systolic (congestive) and diastolic (congestive) heart failure; J96.01 Acute respiratory failure with hypoxia; N17.0 Acute kidney failure with tubular necrosis; E87.1 Hypo-osmolality and hyponatremia; E87.4 Mixed disorder of acid-base balance; N13.8 Other obstructive and reflux uropathy; J90 Pleural effusion, not elsewhere classified; E11.22 Type 2 diabetes mellitus with diabetic chronic kidney disease; N18.9 Chronic kidney disease, unspecified; D50.9 Iron deficiency anemia, unspecified; E78.00 Pure hypercholesterolemia, unspecified; E83.42 Hypomagnesemia; R33.8 Other retention of urine; E83.51 Hypocalcemia; K80.20 Calculus of gallbladder without cholecystitis without obstruction; D72.829 Elevated white blood cell count, unspecified; N30.90 Cystitis, unspecified without hematuria; I25.5 Ischemic cardiomyopathy; I25.10 Atherosclerotic heart disease of native coronary artery without angina pectoris; N40.1 Benign prostatic hyperplasia with lower urinary tract symptoms; Z91.148 Patient's other noncompliance with medication regimen for other reason; I25.2 Old myocardial infarction; Z79.82 Long term (current) use of aspirin; Z79.899 Other long term (current) drug therapy; Z86.73 Personal history of transient ischemic attack (TIA), and cerebral infarction without residual deficits; Z87.891 Personal history of nicotine dependence; Z88.8 Allergy status to other drugs, medicaments and biological substances
CPT/HCPCS: 36415; 36600; 71045; 76770; 80048; 80053; 80061; 81003; 82375; 82550; 82553; 82607; 82746; 82805; 82962; 83036; 83540; 83550; 83735; 83880; 84100; 84145; 84439; 84443; 84484; 85025; 85027; 93005; 93306; 93970; 99291; J1650; J1815; J1940